=== PATIENT | female | born 1965 | race Caucasian/White ===

== ENCOUNTER 2022-12-23 17:34 | Inpatient (IN) | payer OTHER, SELFPAY ==
[2022-12-23 17:52] VITALS: BP 164/96; BP 166/85; PULSE 69; PULSE 71; RESP 18; TEMP 36.3; O2SAT 97; O2SAT 98; BMI 21.9
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
[2022-12-23 18:25] LABS: Appearance Urine Clear; Color Urine Yellow; Glucose Urine UA Negative (Negative); Leukocyte Esterase Urine Negative (Negative); Nitrite Urine Negative (Negative); PH 6.5 (5.0-9.0); Specific Gravity - Urine 1.015 (1.005-1.025); Urine Blood Negative (Negative); Urine Ketones Negative (Negative); Urine Protein Negative (Neg-Trace)
[2022-12-23 18:29] LABS: Amphetamine Screen Urine Not Detected (Not Detect); Barbiturates, Urine Not Detected (Not Detect); Benzodiazepines Screen Urine Not Detected (Not Detect); Cannabinoid Screen Urine Not Detected (Not Detect); Cocaine Screen Urine Not Detected (Not Detect); Fentanyl, urine Not Detected (Not Detect); Opiate Screen Urine Not Detected (Not Detect); Phencyclidine Screen Urine Not Detected (Not Detect)
[2022-12-23 18:38] LABS: COVID-19 Test Negative (Negative); IDNOW Serial# 16C4AD1C
[2022-12-23 18:53] LABS: MANUAL DIFF FLAG NO
[2022-12-23 18:55] LABS: Basophils Percent Auto 0.3 % (0-2); Eosinophils Percent Auto 0.5 % (0-4); Hematocrit 37.4 % (37.0-47.0); Hemoglobin 12.7 g/dl (12.0-16.0); Imm Gran Abs Auto 0.02 X10*3/uL (0.00-0.03); Imm Gran Pct Auto 0.3 % (0.0-0.4); Lymphocytes Percent Auto 27.6 % (20-40); Mean Corpuscular Hemoglobin 28.4 pg (27.0-33.0); Mean Corpuscular Volume 83.7 fL (80.0-98.0); Mean Platelet Volume 9.4 fL (9.4-12.3); Monocytes Absolute Auto 0.3 X10*3/uL (0.1-1.2); Monocytes Percent Auto 4.1 % (2-11); Neutrophils Absolute Auto 4.9 x10*3/uL (2.0-8.3); Neutrophils Percent Auto 67.2 % (45-73); Platelet Count 304 X10*3/uL (160-400); Red Blood Count 4.47 X10*6/uL (4.20-5.50); Red Cell Distribution Width 12.1 % (11.0-16.0); White Blood Count 7.3 X10*3/uL (4.8-10.8)
[2022-12-23 19:34] LABS: Alanine Aminotransferase 11 U/L (0-31); Albumin Level 4.2 g/dL (3.5-5.0); Alkaline Phosphatase 112 U/L (39-117); Anion Gap 11 (12-20); Aspartate Amino Transferase 16 U/L (5-31); Bilirubin Total 0.6 mg/dL (0.0-1.0); Blood Urea Nitrogen 7 mg/dL (9-16); Calcium 9.1 mg/dL (8.4-10.2); Carbon Dioxide 30 mmol/L (22-29); Chloride 105 mmol/L (96-108); Creatinine Clr Calc Pharmacy 67.2; Estimated Glomerular Filt Rate > 60; Ethanol < 10 mg/dL; Glucose Random 145 mg/dL (60-115); Sodium 142 mmol/L (135-145); Total Protein 7.5 g/dL (6.5-8.0)
[2022-12-24 02:50] VITALS: BP 113/65; PULSE 63; RESP 15; TEMP 36.6; O2SAT 98
--- NOTE | 2022-12-24 06:28 | PC.NURSE ---
Patient slept through the night, no distress observed/reported, behavior non concerning, patient is currently not on home medication, patient is off her medication for years per patient, thought delusional repeatedly reporting people from her work are here to electrocute her, will continue to monitor.,
[2022-12-24 07:30] VITALS: BP 133/80; PULSE 78; RESP 18; TEMP 36.7; O2SAT 98
--- NOTE | 2022-12-24 07:49 | PC.NURSE ---
Report from Pranav RN, pt sitting quietly up in bed at this time, NAD.
--- NOTE | 2022-12-24 12:25 | ECG_ITS ---
Test Reason : check qt interval Blood Pressure : / mmHG Vent. Rate : 069 BPM Atrial Rate : 069 BPM P-R Int : 142 ms QRS Dur : 082 ms QT Int : 390 ms P-R-T Axes : 066 -05 032 degrees QTc Int : 417 ms Normal sinus rhythm Nonspecific ST abnormality Abnormal ECG No previous ECGs available Referred By: Argelia Chase Electronically Signed By:ALEJANDRA CRUM MD
[2022-12-24 18:00] VITALS: BP 130/69; PULSE 84; TEMP 36.6; O2SAT 93
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
[2022-12-25 08:46] LABS: Estimated Average Glucose 117 mg/dL; Hemoglobin A1c % 5.7 %
[2022-12-25 08:55] LABS: Cholesterol 272 mg/dL; HDL Cholesterol 47 mg/dL; LDL Cholesterol Calculated 197 mg/dl; Magnesium 2.1 mg/dL (1.6-2.6); Triglycerides 141 mg/dL
[2022-12-25 09:23] LABS: Folate 12.5 ng/mL (> or = 4.0); Thyroid Stimulating Hormone 0.83 uIU/mL (0.32-4.0); Vitamin B12 224 pg/mL (200-900)
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
[2022-12-25 16:35] VITALS: BP 173/90; PULSE 79; RESP 16; TEMP 36.3; O2SAT 98
[2022-12-26 09:41] VITALS: BP 125/85; PULSE 73; RESP 14; TEMP 36.1; O2SAT 99
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
[2022-12-27 06:00] VITALS: BP 123/94; PULSE 94; RESP 16; TEMP 36.6; O2SAT 97
--- NOTE | 2022-12-27 10:24 | HO.PSYCHPN ---
Subjective Subjective Date of Service: 12/27/22 Reason For Visit: Acute Psychosis Subjective Notes: Section 12B Healthcare Proxy: No Guardianship: No Medical Problems Affecting Mental Status: No Interim History: I want to be discharged called her roommate here as a witness to the things that are being done to her- Did not like to hear that she might be held for commitment given extent of her beliefs and how odd/bizarre they are to exclusion of living her life- Medication Compliance: No (not taking recommended medications) Attending Groups: Intermittent Review of Systems Acute medical concerns: No Medical Review of Systems: unchanged Mental Status Exam Mental Status Exam Patient Appearance: Appropriate Patient Orientation: Person, Place, Time and Situation Level of Consciousness: Awake and Appropriate Patient Behavior: Appropriate, Talkative and Resistive to Care Behavior Comments: dressed in nikkie - good eye contact, urgently pleading to go home- that she is not ill. 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 supervisor dairy sanitation Diagnostics Vital Signs (24Hr): Vital Signs - 24 hr 12/27/22 06:00 Temperature 98 F Pulse Rate 94 Respiratory Rate 16 Blood Pressure 123/94 H Pulse Oximetry 97 Oxygen Delivery Method Room Air BMI result Body Mass Index 21.9 Labs 12/23/22 18:48 12/23/22 18:49 Medications Medications Current Medications Acetaminophen (Acetaminophen 325 Mg Tablet) 650 mg PO Q6H PRN PRN Reason: Headache/Pain Mild Scale (1-3) Al Hydroxide/Mg Hydroxide (Magnesium Hydrox/Alum Hydrox 30 Ml Oral.Susp) 30 ml PO Q6H PRN PRN Reason: Heartburn/Nausea Diphenhydramine HCl (Diphenhydramine Hcl 25 Mg Capsule) 50 mg PO Q4H PRN PRN Reason: agitation Haloperidol (Haloperidol 5 Mg Tablet) 5 mg PO Q4H PRN PRN Reason: psychosis Hydroxyzine HCl (Hydroxyzine Hcl 25 Mg Tablet) 25 mg PO Q6H PRN PRN Reason: Anxiety Lorazepam (Lorazepam 1 Mg Tablet) 1 mg PO Q4H PRN PRN Reason: anxiety, agitation Magnesium Hydroxide (Milk Of Magnesia 30 Ml Oral.Susp) 30 ml PO DAILY PRN PRN Reason: Constipation Olanzapine (Olanzapine 10 Mg Tablet) 10 mg PO BEDTIME GENESIS Last Admin: 12/26/22 19:43 Dose: Not Given Olanzapine (Olanzapine 5 Mg Tablet) 5 mg PO Q4H PRN PRN Reason: psychosis, agitation Trazodone HCl (Trazodone Hcl 50 Mg Tablet) 50 mg PO BEDTIME MRX1 PRN PRN Reason: Insomnia Allergies Allergies Allergy/AdvReac Type Severity Reaction Status Date / Time No Known Allergies Allergy Verified 12/23/22 19:33 Assessment & Plan Assessment & Plan (1) Acute psychosis: Status: Acute Code(s): F23 - Brief psychotic disorder Assessment and Plan: seems like a clear delusional disorder- at least! Plan 57 yo female, currently acutely psychotic, probable PTSD history as well. Plan: Collateral contact Olanzapine 10 mg hs and bid prn psychosis Attempt alliance building, support and offer structure, safety. Patient educated on: diagnosis Informed Consent: does not understand Reason for contiued inpatient stay Substantial Risk for: rapid decompensation Time Spent With Patient Time: Total time managing care of this patient today ____ minutes.
[2022-12-27 16:56] VITALS: BP 146/103; PULSE 86; RESP 14; TEMP 36.6; O2SAT 99
[2022-12-28 06:00] VITALS: BP 139/87; PULSE 77; RESP 14; TEMP 36.6; O2SAT 96
--- NOTE | 2022-12-28 17:17 | HO.PSYCHPN ---
Subjective Subjective Date of Service: 12/28/22 Reason For Visit: Acute Psychosis Subjective Notes: Section 12B Healthcare Proxy: No Guardianship: No Medical Problems Affecting Mental Status: No Interim History: Pt continues to present symptoms of delusional content to team. There are no behavioral issues or agitation. She is organized, presenting a 3 page letter to team today outlining her issues..... Doctor, 1. I do not have stress problem, I like to going back to work. 2. I need going home. 3. I have to collect my express mainl. 4. No money in the bank, I have to put money in the bank (check) for pay my bill, insurance bill overdate. 5. I live alone, I do not have nobody for help. 6. I do not need medicine, cause other troubles. 7. [employer] and their group f------ my #1, #2 places, its do not stop with medicine and their harassment. 8. Police take me to [facility] Section 12 on 12/06/2022, they do not keep me. Police told them I have knife in my sofa and some lies ([place] [employer]) 9. Police again ([place] [employer]) claim 12/21/[address] [facility] [address] for Section 12 (3 days) and told them lies, court deemed the case send me home. I ask court for report, she said it is not public record they do not give the report. 10. Police told me they do not investigate ([place] [employer]) my case, they only took to the hospital, other police says [place] police have to investigage the case and help me. 11. I have pending case in [place] [employer] [address] (Appeal) in [facility] in the [place]. My case #, Movement Education Specialist Britta Skaggs, her direct line [phone]. Case against [employer] and their groups, police involved the crime trackers are seen, hear everything I am doing. I am going to seen private psychiatric doctor too. Respectfully, Alejandra Israel 12/28/2022, Ref 3 pages. Message left for Nicolle Laurent TONE REGULATOR [phone]. Case discussed with [place] Police who report they know pt well and pt has skilled nursing psychiatric illness and is currently not a victim of crime that they are aware of. Medication Compliance: No Side effects from medications: No Attending Groups: Intermittent Review of Systems Acute medical concerns: No Medical Review of Systems: unchanged Mental Status Exam Mental Status Exam Patient Appearance: Appropriate Patient Orientation: Person, Place, Time and Situation Level of Consciousness: Alert Patient Behavior: Talkative and Good Eye Contact Mood Description: Anxious and Apprehensive Affect Description: Anxious and Apprehensive Patient Cognition Impaired: No Ability to Follow Directions: Good Speech Pattern: Spontaneous Speech Memory Description: Episodic Impaired Delusions: Being Controlled, Paranoid Ideation and Present Perceptual Disturbances: Depersonalization and Derealization Thought Process: Goal Oriented Thought Content: positive for Circumstantial and positive for Suicidal Ideation (denies) Depressive Symptoms: Increased Anxiety and Thoughts of /Suicide (denies) Judgement: Fair Diagnostics Vital Signs (24Hr): Vital Signs - 24 hr 12/28/22 06:00 Temperature 97.9 F Pulse Rate 77 Respiratory Rate 14 Blood Pressure 139/87 Pulse Oximetry 96 Oxygen Delivery Method Room Air BMI result Body Mass Index 21.9 Labs 12/23/22 18:48 12/23/22 18:49 Medications Medications Current Medications Acetaminophen (Acetaminophen 325 Mg Tablet) 650 mg PO Q6H PRN PRN Reason: Headache/Pain Mild Scale (1-3) Al Hydroxide/Mg Hydroxide (Magnesium Hydrox/Alum Hydrox 30 Ml Oral.Susp) 30 ml PO Q6H PRN PRN Reason: Heartburn/Nausea Diphenhydramine HCl (Diphenhydramine Hcl 25 Mg Capsule) 50 mg PO Q4H PRN PRN Reason: agitation Haloperidol (Haloperidol 5 Mg Tablet) 5 mg PO Q4H PRN PRN Reason: psychosis Hydroxyzine HCl (Hydroxyzine Hcl 25 Mg Tablet) 25 mg PO Q6H PRN PRN Reason: Anxiety Lorazepam (Lorazepam 1 Mg Tablet) 1 mg PO Q4H PRN PRN Reason: anxiety, agitation Magnesium Hydroxide (Milk Of Magnesia 30 Ml Oral.Susp) 30 ml PO DAILY PRN PRN Reason: Constipation Olanzapine (Olanzapine 10 Mg Tablet) 10 mg PO BEDTIME GENESIS Last Admin: 12/27/22 22:02 Dose: Not Given Olanzapine (Olanzapine 5 Mg Tablet) 5 mg PO Q4H PRN PRN Reason: psychosis, agitation Trazodone HCl (Trazodone Hcl 50 Mg Tablet) 50 mg PO BEDTIME MRX1 PRN PRN Reason: Insomnia Allergies Allergies Allergy/AdvReac Type Severity Reaction Status Date / Time No Known Allergies Allergy Verified 12/23/22 19:33 Assessment & Plan Assessment & Plan (1) Delusional disorder: Status: Acute Code(s): F22 - Delusional disorders Plan 57 yo female, currently acutely psychotic, probable PTSD history as well. Plan: Collateral contact Olanzapine 10 mg hs and bid prn psychosis Attempt alliance building, support and offer structure, safety. 12/28/22: Section 12B to 12/29/22. Pt refusing treatment, wrote a well organized letter outling plans. Asks for discharge. Police report she is in no imminent danger in her area, but is chronically delusional. Her reports are not of current abuse, but are chronic delusions Patient educated on: therapeutic strategies Informed Consent: further education needed Reason for contiued inpatient stay Substantial Risk for: inability to function Time Spent With Patient Time: Total time managing care of this patient today 25 minutes.
--- NOTE | 2022-12-28 23:44 | PC.NURSE ---
Patient refused HS medication.
[2022-12-29 06:00] VITALS: BP 139/89; PULSE 98; RESP 14; TEMP 36.9
--- NOTE | 2022-12-29 16:40 | PM.PSYDC ---
DS: Providers Provider Date of Service: 12/29/22 Date of admission: 12/24/22 14:06 Date of discharge: 12/29/22 Primary care physician: Jessica Physician Admitting clinician: Majo Wilson Attending physician on admission: Den Edwards Attending physician on discharge: Den Edwards Discharging clinician: Majo Wilson DS: Diagnosis Discharge Diagnosis (1) Delusional disorder: Status: Acute DS: Medications Discharge Medications Home Medications: Home Medications Medication Instructions Recorded Confirmed No Known Home Meds 12/24/22 12/24/22 Mental Status Exam Mental Status Exam Patient Appearance: Appropriate Patient Orientation: Person, Place, Time and Situation Level of Consciousness: Alert Patient Behavior: Talkative and Good Eye Contact Mood Description: Anxious and Apprehensive Affect Description: Anxious and Apprehensive Patient Cognition Impaired: No Ability to Follow Directions: Good Speech Pattern: Spontaneous Speech Memory Description: Episodic Impaired Delusions: Being Controlled, Paranoid Ideation and Present Perceptual Disturbances: Depersonalization and Derealization Thought Process: Goal Oriented Thought Content: positive for Circumstantial and positive for Suicidal Ideation (denies) Depressive Symptoms: Increased Anxiety and Thoughts of /Suicide (denies) Judgement: Fair Data Data Completed and Pending Completed studies during hospitalization [Text1]: 12/23/22 12/23/22 12/23/22 18:09 18:12 18:12 WBC RBC Hgb Hct MCV MCH MCHC RDW Plt Count MPV Immature Gran % (Auto) Neut % (Auto) Lymph % (Auto) [place] % (Auto) Eos % (Auto) Baso % (Auto) Lymph # (Auto) [place] # (Auto) Eos # (Auto) Baso # (Auto) Abs Immat Gran (auto) Absolute Neuts (auto) Absolute Nucleated RBC Nucleated RBC % (auto) Sodium Potassium Chloride Carbon Dioxide Anion Gap BUN Creatinine Estim Creat Clear Calc Estimated GFR Random Glucose Estimat Average Glucose Hemoglobin A1c % Calcium Magnesium Total Bilirubin AST ALT Alkaline Phosphatase Total Protein Albumin Triglycerides Cholesterol LDL Cholesterol, Calc HDL Cholesterol Vitamin B12 Folate TSH Free T4 Urine Color Yellow Urine Appearance Clear Urine pH 6.5 Ur Specific [place] 1.015 Urine Protein Negative Urine Glucose (UA) Negative Urine Ketones Negative Urine Blood Negative Urine Nitrite Negative Ur Leukocyte Esterase Negative Urine Opiates Screen Not Detected Urine Fentanyl Screen Not Detected Ur Barbiturates Screen Not Detected Ur Phencyclidine Scrn Not Detected Ur Amphetamines Screen Not Detected U Benzodiazepines Scrn Not Detected Urine Cocaine Screen Not Detected U Marijuana (THC) Screen Not Detected Ethyl Alcohol COVID-19 ([facility]) Negative COVID-19 [employer] See Note 12/23/22 12/23/22 12/25/22 18:48 18:49 08:15 WBC 7.3 RBC 4.47 Hgb 12.7 Hct 37.4 MCV 83.7 MCH 28.4 MCHC 34.0 RDW 12.1 Plt Count 304 MPV 9.4 Immature Gran % (Auto) 0.3 Neut % (Auto) 67.2 Lymph % (Auto) 27.6 [place] % (Auto) 4.1 Eos % (Auto) 0.5 Baso % (Auto) 0.3 Lymph # (Auto) 2.0 [place] # (Auto) 0.3 Eos # (Auto) 0.0 Baso # (Auto) 0.0 Abs Immat Gran (auto) 0.02 Absolute Neuts (auto) 4.9 Absolute Nucleated RBC 0.000 Nucleated RBC % (auto) 0.0 Sodium 142 Potassium 4.0 Chloride 105 Carbon Dioxide 30 H Anion Gap 11 L BUN 7 L Creatinine 0.73 Estim Creat Clear Calc 67.2 Estimated GFR > 60 Random Glucose 145 H Estimat Average Glucose 117 Hemoglobin A1c % 5.7 Calcium 9.1 Magnesium Total Bilirubin 0.6 AST 16 ALT 11 Alkaline Phosphatase 112 Total Protein 7.5 Albumin 4.2 Triglycerides Cholesterol LDL Cholesterol, Calc HDL Cholesterol Vitamin B12 Folate TSH Free T4 Urine Color Urine Appearance Urine pH Ur Specific [place] Urine Protein Urine Glucose (UA) Urine Ketones Urine Blood Urine Nitrite Ur Leukocyte Esterase Urine Opiates Screen Urine Fentanyl Screen Ur Barbiturates Screen Ur Phencyclidine Scrn Ur Amphetamines Screen U Benzodiazepines Scrn Urine Cocaine Screen U Marijuana (THC) Screen Ethyl Alcohol < 10 COVID-19 ([facility]) COVID-19 [employer] 12/25/22 08:15 WBC RBC Hgb Hct MCV MCH MCHC RDW Plt Count MPV Immature Gran % (Auto) Neut % (Auto) Lymph % (Auto) [place] % (Auto) Eos % (Auto) Baso % (Auto) Lymph # (Auto) [place] # (Auto) Eos # (Auto) Baso # (Auto) Abs Immat Gran (auto) Absolute Neuts (auto) Absolute Nucleated RBC Nucleated RBC % (auto) Sodium Potassium Chloride Carbon Dioxide Anion Gap BUN Creatinine Estim Creat Clear Calc Estimated GFR Random Glucose Estimat Average Glucose Hemoglobin A1c % Calcium Magnesium 2.1 Total Bilirubin AST ALT Alkaline Phosphatase Total Protein Albumin Triglycerides 141 Cholesterol 272 LDL Cholesterol, Calc 197 HDL Cholesterol 47 Vitamin B12 224 Folate 12.5 TSH 0.83 Free T4 1.20 Urine Color Urine Appearance Urine pH Ur Specific [place] Urine Protein Urine Glucose (UA) Urine Ketones Urine Blood Urine Nitrite Ur Leukocyte Esterase Urine Opiates Screen Urine Fentanyl Screen Ur Barbiturates Screen Ur Phencyclidine Scrn Ur Amphetamines Screen U Benzodiazepines Scrn Urine Cocaine Screen U Marijuana (THC) Screen Ethyl Alcohol COVID-19 ([facility]) COVID-19 Clin Com DS: Summary Hospital Course Hospital Course: Admission to adult psychiatry for exacerbation of delusional disorder. Admitted on Section 12 B. Pt refused medications, had no issues with behavior, and declined further treatment, citing a court case against her employer for harassment (verified) and harassment from the local police who report they are familiar with pt. Pt was encouraged to call and or return if we could be of assistance. 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 Status at Discharge Functional status at discharge: independent ambulation Overall status at discharge: patient is back to baseline Time Spent with Patient Time attestation: Total time managing care of this patient today ____ minutes. Time spent: Less than 30 minutes Discharge Plan Discharge Anticipated Discharge Date/Time: 12/29/22 12:50 Patient Disposition: Home, Self-Care Discharge Diagnosis: Delusional Disorder Referrals: Physician,Jessica J [Primary Care Provider] - 1 Week Discharge Medications: No Action No Known Home Meds Discharge Orders: Discharge Order (Routine); Ordered 12/29/22 Ordered By: Majo Wilson Diet: Advance to usual diet Activity on Discharge: As tolerated Stand Alone Forms: Patient Portal Discharge page, Community Support Care Plan Goals: Mood and Behavioral Stabilization Health Concerns: Mood and Behavioral Stabilization Plan of Treatment: Alejandra has declined treatment She will return to her therapist and has requested her therapist and primary care physician schedule a consult with psychiatry. Assessment: Non suicidal, Non homicidal, Non manic, Non psychotic with fixed delusional thought content not interfering with her current safety or judment regarding self care. Discharge Date/Time: 12/29/22 11:41
== END 2022-12-29 11:41 | disposition home or self-care (01) | DRG 885 ==
LOC: HO.ED 12-24 00:33 → HO.PM5 12-24 14:08
PROVIDERS: Admitting Provider Psychiatry & Neurology Psychiatry; Emergency Provider Emergency Medicine Emergency Medical Services; Visit Provider Clinical Nurse Specialist Psychiatric/Mental Health, Adult
DX: F22 Delusional disorders (principal); R45.851 Suicidal ideations; F23 Brief psychotic disorder; Z20.822 Contact with and (suspected) exposure to COVID-19
CPT/HCPCS: 36415; 80053; 80061; 80307; 81003; 82077; 82607; 82746; 83036; 83735; 84439; 84443; 85025; 87635; 93005; 99285